=== PATIENT | female | born 1940 | race Caucasian/White ===

== ENCOUNTER 2018-12-26 12:47 | Day surgery (SDC) | payer OTHER ==
[2018-12-26] MEDS ORDERED: NS 0.9% VIAL 10 ML ONE (13:03)
[2018-12-26] MEDS ORDERED: DUOVISC 1 KIT OPTH ONE (13:04)
[2018-12-26] MEDS ORDERED: MOXIFLOXACIN HCL 10 DROPS/ML **OR USE OPTH ONE (13:04)
[2018-12-26] MEDS ORDERED: BALANCED SALT IRRIG PLAIN 500 ML BTL IRR ONE (13:04)
[2018-12-26] MEDS ORDERED: EPINEPHRINE/PF 1 MG/ML AMP ONE ×2 (13:04→15:32)
[2018-12-26] MEDS ORDERED: NA CHLORIDE 0.9% 500 ML ONE (13:55)
[2018-12-26] MEDS ORDERED: LIDOCAINE 2% MPF 5 ML VIAL ONE ×2 (13:55→15:16)
[2018-12-26] MEDS ORDERED: BUPIVACAINE 0.25% PF 10 ML VIAL ONE (13:56)
[2018-12-26] MEDS ORDERED: TETRACAINE HCL 0.5% 4ML OPTH ONE (13:56)
[2018-12-26] MEDS: PHENYLEPHRINE 10% OPTH 5ML ONE ×3 (14:29→14:40)
[2018-12-26] MEDS: CYCLOPENTOLATE 1% OPTH 2 ML ONE ×3 (14:29→14:40)
[2018-12-26] MEDS ORDERED: PROPOFOL 200 MG/20 ML VIAL IV ONE (15:16)
--- NOTE | 2018-12-26 16:00 | P.BOP ---
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
--- NOTE | 2018-12-27 02:22 | OP ---
Surgeon: Argelia Guerrero MD Anesthesiologist: Flora Sargent CRNA and Mike Mack MD. 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 Operation Performed: Phacoemulsification with intraocular lens implant, left eye. Anesthesia: Per cataract surgery. Complications: None. Description Of Procedure: In day surgery, the patient was prepped with Betadine and draped. A conju nctival incision was made in the inferior nasal quadrant with Chris scissors. A sub-Tenon block c onsisting of a 1:1 mixture of 2% Xylocaine and 0.25% bupivacaine was placed through the conjunctival incision with a blunt cannula. A Honan balloon was placed over the eye and the patient was transferr ed to the operating room. In the operating room the patient was prepped and draped in the usual sterile fashion for ophthalmic surgery. A lid speculum was placed in the left eye. Two paracentesis sites were made superiorly and inferiorly in the limbal cornea. Viscoat was placed in the anterior chamber and a crescent blade wa s used to make a corneal groove and tunnel, and a keratome was used to enter the anterior chamber. P rovisc was placed in the anterior chamber and a 360 degree capsulotomy was performed with a cystitome . The lens was hydrodissected with BSS and rotated freely. The lens was removed with a stop and cho p technique. 5.77 Phaco CDE was used to remove the lens. Residual cortex was removed with the irrig ation and aspiration. Provisc was placed in the capsular bag. A ZCB00 +25.0 Lens was placed in the capsular bag without complications. Irrigation and aspiration was used to remove residual viscoelast ic. The paracentesis sites were hydrated with BSS. The wound and paracentesis sites were inspected and found to be watertight. Vigamox 0.07 cc was placed intracamerally at the end of the procedure. The eye was irrigated with balanced salt solution. The eye was patched with a soft cotton patch and Mason metal shield. The patient was returned to day surgery in good condition. Comments: 1:5000 epinephrine was placed in the anterior chamber prior to Viscoat. Discharge Instructions: Ms. Rob is discharged to home in good condition and is to follow up with Dr. Guerrero in the morning. AIMEE/MODL Voice ID: [id number] Report ID: [id number]
== END 2018-12-26 16:45 | disposition home or self-care (01) ==
LOC: OR 12:47
PROVIDERS: ATTEND Ophthalmology Retina Specialist
PROC: 08RK3JZ Replacement of Left Lens with Synthetic Substitute, Percutaneous Approach (ICD-10-PCS; principal; 2018-12-26 12:45)
DX: H25.12 Age-related nuclear cataract, left eye (principal); H25.012 Cortical age-related cataract, left eye; K21.9 Gastro-esophageal reflux disease without esophagitis; M81.0 Age-related osteoporosis without current pathological fracture; Z85.828 Personal history of other malignant neoplasm of skin; Z88.0 Allergy status to penicillin; Z88.2 Allergy status to sulfonamides; Z91.011 Allergy to milk products; Z91.09 Other allergy status, other than to drugs and biological substances; Z80.9 Family history of malignant neoplasm, unspecified
CPT/HCPCS: 66984; J2704; J0171 ×2

== ENCOUNTER 2022-03-19 10:26 | Emergency (ER) | payer OTHER ==
--- NOTE | 2022-03-19 11:23 | RAD REPORT ---
EXAM DESCRIPTION: CT - Spine Lumbar Wo Con - 03/19/2022 11:05 am CLINICAL HISTORY: Radiculopathy. Low back pain, trauma COMPARISON: No comparisons TECHNIQUE: Axial noncontrast CT imaging of the lumbar spine was performed with coronal and sagittal re-formatted images. All CT scans are performed using dose optimization technique as appropriate and may include automated exposure control or mA/KV adjustment according to patient size. FINDINGS: Diffuse osteopenia is present. No acute fracture is evident. Moderate multilevel spondylosis is noted. There is evidence significant central canal stenosis at L3- 4 and L4-5. No paraspinal mass or hematoma seen. Aortic atherosclerosis. 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 No acute fracture is seen.
--- NOTE | 2022-03-19 11:43 | EDPHYS ---
Physician Documentation [facility] Name: Ashlyn Rob Age: 81 yrs Sex: Female : 1940 Arrival Date: 03/19/2022 Time: 10:29 Bed 8 Private MD: ED Physician Rick Newberry HPI: 03/19 11:44 This 81 yrs old Female presents to ER via EMS with complaints of Fall Injury. kdr 11:44 Patient states that she was walking from her doctor's office when she fell on a [facility] sidewalk landing with her buttock in a flower bed. There was a metal the edge of the flower bed that she also impacted. She now complains of low back pain. She denies any trouble urinating or defecating. She has not lost control of her bowel or bladder's. She has no other pain other than her low back. He is nonacute and nontoxic in the ED. Onset: The symptoms/episode began/occurred just prior to arrival. Severity of symptoms: At their worst the symptoms were mild in the emergency department the symptoms are unchanged. The patient has not experienced similar symptoms in the past. The patient has been recently seen by a physician: the patient's primary care provider. Historical: - Allergies: 10:34 PENICILLINS; ph 10:34 Sulfa (Sulfonamide Antibiotics); ph - Home Meds: 10:34 Lisinopril Oral [Active]; ph - PMHx: 10:34 Hypertensive disorder; ph - Immunization history: Last tetanus immunization: unknown. - Social history:: Smoking status: Patient denies any tobacco usage or history of. ROS: 11:44 Constitutional: Negative for fever, chills, and weight loss, Eyes: Negative for injury, kdr pain, redness, and discharge, ENT: Negative for injury, pain, and discharge, Neck: Negative for injury, pain, and swelling, Cardiovascular: Negative for chest pain, palpitations, and edema, Respiratory: Negative for shortness of breath, cough, wheezing, and pleuritic chest pain, Abdomen/GI: Negative for abdominal pain, nausea, vomiting, diarrhea, and constipation, : Negative for injury, bleeding, discharge, and swelling, MS/Extremity: Negative for injury and deformity, Skin: Negative for injury, rash, and discoloration, Neuro: Negative for headache, weakness, numbness, tingling, and seizure activity. Psych: Negative for depression, anxiety, suicide ideation, homicidal ideation, and hallucinations, Allergy/Immunology: Negative for hives, rash, and allergies, Endocrine: Negative for neck swelling, polydipsia, polyuria, polyphagia, and marked weight changes, Hematologic/Lymphatic: Negative for swollen nodes, abnormal bleeding, and unusual bruising. 11:44 Back: Positive for injury or acute deformity, decreased range of motion, pain at rest, pain with movement, of the lumbar area. Exam: 11:44 Constitutional: This is a well developed, well nourished patient who is awake, alert, kdr and in no acute distress. Head/Face: Normocephalic, atraumatic. Eyes: Pupils equal round and reactive to light, extra-ocular motions intact. Lids and lashes normal. Conjunctiva and sclera are non-icteric and not injected. Cornea within normal limits. Periorbital areas with no swelling, redness, or edema. Neck: Trachea midline, no thyromegaly or masses palpated, and no cervical lymphadenopathy. Supple, full range of motion without nuchal rigidity, or vertebral point tenderness. No Meningismus. Chest/axilla: Normal chest wall appearance and motion. Nontender with no deformity. No lesions are appreciated. Cardiovascular: Regular rate and rhythm with a normal S1 and S2. No gallops, murmurs, or rubs. Normal PMI, no JVD. No pulse deficits. Respiratory: Lungs have equal breath sounds bilaterally, clear to auscultation and percussion. No rales, rhonchi or wheezes noted. No increased work of breathing, no retractions or nasal flaring. Abdomen/GI: Soft, non-tender, with normal bowel sounds. No distension or tympany. No guarding or rebound. No evidence of tenderness throughout. Skin: Warm, dry with normal turgor. Normal color with no rashes, no lesions, and no evidence of cellulitis. MS/ Extremity: Pulses equal, no cyanosis. Neurovascular intact. Full, normal range of motion. Neuro: Awake and alert, GCS 15, oriented to person, place, time, and situation. Cranial nerves II-XII grossly intact. Motor strength 5/5 in all extremities. Sensory grossly intact. Cerebellar exam normal. Normal gait. Psych: Awake, alert, with orientation to person, place and time. Behavior, mood, and affect are within normal limits. 11:44 Back: pain, that is mild, that is moderate, of the lumbar area, ROM is painful, with all movement, normal spinal alignment noted. Vital Signs: 10:36 BP 122 / 51; Pulse 70; Resp 18; Temp 98.4; Pulse Ox 99% on R/A; Weight 81.65 kg; Height ph 5 ft. 2 in. (157.48 cm); Pain 2; 12:26 BP 135 / 54; Pulse 68; Resp 18; Temp 97.9; Pulse Ox 98% on R/A; ph 10:36 Body Mass Index 32.92 (81.65 kg, 157.48 cm) ph [place] Coma Score: 10:36 Eye Response: spontaneous(4). Verbal Response: oriented(5). Motor Response: obeys ph commands(6). Total: 15. Trauma Score (Adult): 10:36 Eye Response: spontaneous(1); Verbal Response: oriented(1); Motor Response: obeys ph commands(2); Systolic BP: > 89 mm Hg(4); Respiratory Rate: 10 to 29 per min(4); Villa Score: 15; Trauma Score: 12 MDM: 11:43 Patient medically screened. kdr 11:44 Data reviewed: vital signs, nurses notes, lab test result(s), radiologic studies. kdr Counseling: I had a detailed discussion with the patient and/or guardian regarding: the historical points, exam findings, and any diagnostic results supporting the discharge/admit diagnosis, lab results, radiology results, the need for outpatient follow up. 03/19 12:08 Order name: Urine Dipstick-Ancillary EDPA 03/19 10:47 Order name: CT Lumbar Spine Wo Con; Complete Time: 11:32 kdr 03/19 10:47 Order name: Urine Dipstick-Ancillary (obtain specimen); Complete Time: 12:25 kdr Administered Medications: 11:55 Drug: traMADol 50 mg Route: PO; ph 12:25 Follow up: Response: No adverse reaction ph Disposition Summary: 03/19/22 11:43 Discharge Ordered Location: Home kdr Problem: new kdr Symptoms: have improved kdr Condition: Stable kdr Diagnosis - Low back pain kdr - Other intervertebral disc degeneration, lumbar region kdr Followup: kdr - With: Private Physician - When: 2 - 3 days - Reason: If symptoms return, Further diagnostic work-up, Recheck today's complaints, Continuance of care, Re-evaluation by your physician Discharge Instructions: - Discharge Summary Sheet kdr - Acute Back Pain, Adult kdr - Musculoskeletal Pain kdr - Degenerative Disk Disease kdr - Back Exercises, [id number] kdr Forms: - Medication Reconciliation Form kdr - Thank You Letter kdr - Prescription Opioid Use kdr Prescriptions: - Tramadol 50 mg Oral Tablet - take 1 tablet by ORAL route every 8 hours as needed; 12 tablet; Refills: 0, kdr Product Selection Permitted - Cyclobenzaprine 5 mg Oral Tablet - take 1 tablet by ORAL route 3 times per day As needed; 12 tablet; Refills: 0, kdr Product Selection Permitted Signatures: Dispatcher [employer] Rick Robert MD MD kdr Linda Abdi RN RN ph
--- NOTE | 2022-03-19 11:43 | ER ---
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 Care prior to arrival: None. Mechanism of Injury: Fall from standing position. Trauma event details: Injury occurred in the [facility], Injury occurred: in a public building. Injury occurred: March 19, 2022. 10:29 Acuity: MARQUEZ 3 ph 10:29 Method Of Arrival: EMS: [facility] 10:37 Coronavirus screen: Vaccine status: Patient reports receiving the 2nd dose of the covid ph vaccine. Ebola Screen: No symptoms or risks identified at this time. Initial Sepsis Screen: Does the patient meet any 2 criteria? No. Patient's initial sepsis screen is negative. Does the patient have a suspected source of infection? No. Patient's initial sepsis screen is negative. Risk Assessment: Do you want to hurt yourself or someone else? Patient reports no desire to harm self or others. Onset of symptoms was March 19, 2022. Triage Assessment: 10:38 General: Appears in no apparent distress. comfortable, well groomed. Pain: Complains of ph pain in low back area. Neuro: Level of Consciousness is awake, alert, obeys commands, Oriented to person, place, time, situation. Trauma Activation: Not Applicable Physician: ED Physician; Name: ; Notified At: ; Arrived At: Physician: General Surgeon; Name: ; Notified At: ; Arrived At: Physician: Radiology; Name: ; Notified At: ; Arrived At: Physician: Respiratory; Name: ; Notified At: ; Arrived At: Physician: Lab; Name: ; Notified At: ; Arrived At: Historical: - Allergies: 10:34 PENICILLINS; ph 10:34 Sulfa (Sulfonamide Antibiotics); ph - Home Meds: 10:34 Lisinopril Oral [Active]; ph - PMHx: 10:34 Hypertensive disorder; ph - Immunization history: Last tetanus immunization: unknown. - Social history:: Smoking status: Patient denies any tobacco usage or history of. Screenin:37 Abuse screen: Denies threats or abuse. Denies injuries from another. Nutritional ph screening: No deficits noted. Tuberculosis screening: No symptoms or risk factors identified. Fall Risk Fall in past 12 months (25 points). No secondary diagnosis (0 pts). No IV (0 pts). Ambulatory Aid- Crutches/Cane/Walker (15 pts). Gait- Impaired (20 pts.). Mental Status- Oriented to own ability (0 pts). Total Montoya Fall Scale indicates High Risk Score (45 or more points). Fall prevention measures have been instituted. Side Rails Up X 2 Placed Close to Nursing Station Frequent Obs/Assessments Occuring As available patient and family educated on Fall Prevention Program and Strategies. Primary Survey: 10:35 NO uncontrolled hemorrhage observed. A: The client is awake and alert. The airway is ph patent. Breathing/Chest: Spontaneous respiratory effort, equal unlabored respirations, breath sounds clear bilaterally, regular pattern, symmetrical chest rise and fall. Circulation: No external hemorrhage present. Regular and strong central pulse, skin warm/dry/normal color. Disability Pupils are equal, round, reactive to light and accommodation. Client is alert. Exposure/Environment: No obvious injuries are noted at this time. c/o pain to lower back area A warming method has been applied: A warm blanket has been provided to the patient. 12:25 Reassessment Alertness and Airway: Awake and alert. The airway is patent. Breathing: ph Spontaneous respiratory effort, equal unlabored respirations, breath sounds clear bilaterally, regular pattern with symmetrical chest rise and fall. Circulation: No external hemorrhage noted. Regular and strong central pulse, skin warm/dry/normal color. Disability: Pupils Pupils are equal, round, reactive to light and accomodation. Alert. Secondary Survey: 10:36 HEENT: No deficits noted. Musculoskeletal: Reports pain in low back area. ph Assessment: 10:33 General: Appears in no apparent distress. comfortable, well groomed, Behavior is calm, ph cooperative, appropriate for age, ortho walking boot to R foot, reports that she is seeing drywall worker for foot fracture. Pain: Complains of pain in lumbar area and low back area. Neuro: Level of Consciousness is awake, alert, obeys commands, Oriented to person, place, time, situation, Denies dizziness. Cardiovascular: Capillary refill < 3 seconds in bilateral fingers Patient's skin is warm and dry. Respiratory: Airway is patent Respiratory effort is even, unlabored. Derm: Skin is fragile, is thin, Skin is pink, warm \T\ dry. Musculoskeletal: Circulation, motion, and sensation intact. Range of motion: intact in all extremities. Vital Signs: 10:36 BP 122 / 51; Pulse 70; Resp 18; Temp 98.4; Pulse Ox 99% on R/A; Weight 81.65 kg; Height ph 5 ft. 2 in. (157.48 cm); Pain 09/25; 12:26 BP 135 / 54; Pulse 68; Resp 18; Temp 97.9; Pulse Ox 98% on R/A; ph 10:36 Body Mass Index 32.92 (81.65 kg, 157.48 cm) ph [place] Coma Score: 10:36 Eye Response: spontaneous(4). Verbal Response: oriented(5). Motor Response: obeys ph commands(6). Total: 15. Trauma Score (Adult): 10:36 Eye Response: spontaneous(1); Verbal Response: oriented(1); Motor Response: obeys ph commands(2); Systolic BP: > 89 mm Hg(4); Respiratory Rate: 10 to 29 per min(4); [place] Score: 15; Trauma Score: 12 ED Course: 10:29 Patient arrived in ED. ph 10:33 Triage completed. ph 10:37 Arm band placed on. ph 10:38 Patient has correct armband on for positive identification. Bed in low position. Call ph light in reach. Side rails up X2. Pulse ox on. NIBP on. Door closed. Noise minimized. Warm blanket given. 10:38 Patient maintains SpO2 saturation greater than 95% on room air. Thermoregulation: warm ph blanket given to patient. 10:43 Veronika Chua RN is Primary Nurse. kr3 10:45 Rick Newberry MD is Attending Physician. kdr 11:07 CT Lumbar Spine Wo Con In Process Unspecified. EDMS 12:25 No provider procedures requiring assistance completed. Patient did not have IV access ph during this emergency room visit. Administered Medications: 11:55 Drug: traMADol 50 mg Route: PO; ph 12:25 Follow up: Response: No adverse reaction ph Medication: 10:38 VIS not applicable for this client. ph Intake: 10:36 PO: 0ml; Total: 0ml. ph Output: 10:36 Urine: 0ml; Total: 0ml. ph Outcome: 11:43 Discharge ordered by . kdr 12:25 Discharged to home ambulatory. ph 12:25 Condition: good 12:25 Discharge instructions given to patient, Instructed on discharge instructions, follow up and referral plans. medication usage, Demonstrated understanding of instructions, follow-up care, medications, Prescriptions given X 2. 12:25 Patient's length of stay was not longer than 2 hours. 12:26 Patient left the ED. ph Signatures: Dispatcher [employer] EDMS Rick Newberry MD MD kdr Hall, Patricia, RN RN ph Veronika Chua RN RN kr3
[2022-03-19] MEDS ORDERED: TRAMADOL HCL 50 MG TAB ONE (11:58)
[2022-03-19 12:08] LABS: Urine Blood Trace-intact (Negative); Urine Glucose Negative (Negative); Urine Protein Negative (Negative); Urine Specific Gravity 1.015 (1.005-1.030)
[2022-03-19 13:36] VITALS: BP 135/54; TEMP 97.9; O2SAT 98
== END 2022-03-19 12:26 | disposition home or self-care (01) ==
LOC: ER 10:26
DX: M51.36 Other intervertebral disc degeneration, lumbar region (principal); I10 Essential (primary) hypertension; Z88.0 Allergy status to penicillin; Z88.2 Allergy status to sulfonamides
CPT/HCPCS: 72131; 81003; 99284

== ENCOUNTER 2024-07-05 16:04 | Emergency (ER) | payer OTHER ==
--- OUTSIDE RECORDS SUMMARY | 2024-07-05 16:07 | XMS REPORT | Continuity of Care Document ---
Author Name Unknown Address [address] [place] [address] [address] [place] [id number] [facility] thconnect Address [address] [facility]. [address] [place] [address] Care Team Providers Care Roofer Assistant Name Role Phone ISABELLA VALDEZ Attending Clinician UnavailMONCHO Louis Attending Clinician Unageetha ilable LAB90 Attending Clinician Unavailable DURAL, CIPRIANO Attending Clinician Unavailable Payers Payer Name Policy Type Policy Number Effective Date Expirati on Date Source [employer] [place] P[place] 5 [id number] 2023 00:00:00 [employer] [place] SELECT PLAN HMO 7 [id number] 2022 00:00:00 Problems Condition Name Condition Details Condition Category Status Onset Date Resolution Date Last Treatment Date Treating Clinician Comments Source Stage 3a chronic kidney disease Stage 3a chronic kidney disease Disease Active 02-01 00:00: 00 Kateryna Seybold - Externa l Well adult exam Well adult exam Disease Active 02-01 00:00: 00 Kateryna Seybold - Externa l Primary hypertensi on Primary hypertensi on Disease Active 3-07 00:00: 00 Kateryna Seybold - Externa l GERD (gastroeso phageal reflux disease) GERD (gastroeso phageal reflux disease) Disease Active Kateryna Seybold - Externa l Allergic rhinitis Allergic rhinitis Disease Active Kateryna Seybold - Externa l No known active problems No known active problems Disease Kateryna Seybold - Externa l Allergies, Adverse Reactions, Alerts Allergy Name Allergy Type Status Severity Reaction(s) Onset Date Inactive Date Treating Clinician Comments Source Sulfa Drugs Propensi ty to adverse reaction s Active 2022-08 0-16 00:00: 00 Other reaction( s): Unknown Kateryna jacobs Egg Solids, Whole Propensi ty to adverse reaction s Active 08-24 00:00: 00 Allergy testing Kateryna jacobs Penicill ins Propensi ty to adverse reaction s Active 08-24 00:00: 00 Allergy testing Kateryna jacobs Lac Bovis Propensi ty to adverse reaction s Active Diarrhea 12-22 00:00: 00 Kateryna Lockea l Social History Social Habit Start Date Stop Date Quantity Comments Source Sexual orientation Ruchi pink Kary - External Alcoholic beverage intake 2024-03-16 00:00:00 2024-03-16 00:00:00 Lifetime non-drinker (finding) Kateryna Preston - External History of Social function 2024-02-02 00:00:00 2024-02-02 00:00:00 Kateryna Preston - External Alcohol intake 2023-10-21 00:00:00 2023-10-21 00:00:00 Lifetime non-drinker (finding) Kateryna Preston - External Sex assigned at 1940 00:00:00 1940 00:00:00 Kateryna Preston - External Smoking Status Start Date Stop Date Source Never smoked tobacco Kateryna Preston - External Medications Ordered Medication Name Filled Medication Name Start Date Stop Date Current Medication? Ordering Clinician Indication Dosage Frequency Signature (SIG) Comments Components Source Omeprazole 20 MG oral Delayed Release Capsule 03-16 15:47: 27 Yes 20mg QD Take 1 capsule (20 mg total) by mouth daily. Kateryna jacobs cycloSPORIN E (RESTASIS MULTIDOSE OP) 03-16 15:35: 09 Yes Apply to eye Kateryna jacobs Loratadine 10 MG oral Capsule 03-16 15:35: 09 Yes 10mg QD Take 1 capsule (10 mg total) by mouth daily. Kateryna jacobs Calcium 500 MG oral Tablet 03-16 15:35: 09 Yes 1{tbl} Q.[id number] 3D Take 1 tablet by mouth 3 times daily. Kateryna jacobs raNITIdine HCl (RANITIDINE 150 MAX STRENGTH OR) 03-16 15:35: 01 03-16 00:00 :00 No 150mg Q.5D Take 150 mg by mouth 2 times daily. Kateryna jacobs raNITIdine HCl (RANITIDINE 150 MAX STRENGTH OR) 02-01 08:47: 08 Yes 150mg Take 150 mg by mouth 2 times daily. Kateryna jacobs Loratadine 10 MG oral Capsule 02-01 08:47: 08 Yes 10mg Take 1 capsule (10 mg total) by mouth daily. Kateryna jacobs Calcium 500 MG oral Tablet 02-01 08:47: 08 Yes 1{tbl} Take 1 tablet by mouth 3 times daily. Kateryna jacobs cycloSPORIN E (RESTASIS MULTIDOSE OP) 11-29 09:02: 59 Yes Apply to eye Kateryna jacobs Loratadine 10 MG oral Capsule 11-29 09:02: 59 Yes 10mg Take 1 capsule (10 mg total) by mouth daily. Kateryna jacobs Calcium 500 MG oral Tablet 11-29 09:02: 59 Yes 1{tbl} Take 1 tablet by mouth 3 times daily. Kateryna jacobs Fluticasone Furoate 50 MCG/ACT inhalation AEROSOL POWDER, BREATH ACTIVATED 11-29 09:02: 59 12-20 00:00 :00 No Inhale into the lungs Kateryna jacobs Fluticasone Furoate 50 MCG/ACT inhalation AEROSOL POWDER, BREATH ACTIVATED 10-20 10:53: 38 Yes Inhale into the lungs Kateryna jacobs Calcium 600-10 MG-MCG oral Chewable Tablet 10-20 10:52: 53 10-20 00:00 :00 No Take by mouth Kateryna jacobs Probiotic Product (Probiotic- 10) oral Chewable Tablet 10-20 10:51: 18 10-20 00:00 :00 No Take by mouth Kateryna jacobs Calcium 500 MG oral Tablet 10-20 10:51: 16 Yes 1{tbl} Take 1 tablet by mouth 3 times daily. Kateryna jacobs cycloSPORIN E (RESTASIS MULTIDOSE OP) 10-20 10:51: 16 Yes Apply to eye Kateryna jacobs Loratadine 10 MG oral Capsule 10-20 10:51: 16 Yes 10mg Take 1 capsule (10 mg total) by mouth daily. Kateryna jacobs Doxycycline Hyclate 100 MG oral Capsule 10-19 00:00: 00 12-20 00:00 :00 No Kateryna jacobs Alendronate Sodium 70 MG oral Tablet 2022-08 00:00: 00 Yes [id number] 70mg Take 1 tablet (70 mg total) by mouth every 7 days. Kateryna jacobs cycloSPORIN E (RESTASIS MULTIDOSE OP) 2022-08 10:48: 43 Yes Apply to eye Kateryna jacobs Loratadine 10 MG oral Capsule 2022-08 10:48: 43 Yes 10mg Take 1 capsule (10 mg total) by mouth daily. Kateryna jacobs Fluticasone Furoate 50 MCG/ACT inhalation AEROSOL POWDER, BREATH ACTIVATED 2022-08 10:48: 43 Yes Inhale into the lungs Kateryna jacobs Probiotic Product (Probiotic- 10) oral Chewable Tablet 2022-08 10:48: 43 Yes Take by mouth Kateryna jacobs Calcium 600-10 MG-MCG oral Chewable Tablet 2022-08 10:48: 43 Yes Take by mouth Kateryna jacobs Losartan Potassium (COZAAR) 50 MG oral Tablet 05-13 00:00: 00 05-31 00:00 :00 No [id number] 100mg Take 2 tablets (100 mg total) by mouth daily. Kateryna jacobs Losartan Potassium (COZAAR) 100 MG oral Tablet 05-10 00:00: 00 Yes 100mg QD Take 1 tablet (100 mg total) by mouth daily 1 1/2 tabs QD. Kateryna jacobs Clindamycin HCl 300 MG oral Capsule 05-08 00:00: 00 Yes 300mg Take 1 capsule (300 mg total) by mouth every 8 hours. Kateryna jacobs Alendronate Sodium 70 MG oral Tablet 08-24 16:15: 52 08-24 00:00 :00 No 70mg Take 70 mg by mouth every 7 days Kateryna jacobs cycloSPORIN E (RESTASIS MULTIDOSE OP) 08-24 15:42: 05 Yes Apply to eye Kateryna jacobs Loratadine 10 MG oral Capsule 08-24 15:42: 05 Yes 10mg Take 10 mg by mouth daily Kateryna jacobs Fluticasone Furoate 50 MCG/ACT inhalation AEROSOL POWDER, BREATH ACTIVATED 08-24 15:42: 05 Yes Inhale into the lungs Kateryna jacobs Probiotic Product (Probiotic- 10) oral Chewable Tablet 08-24 15:42: 05 Yes Take by mouth Kateryna jacobs Calcium 600-10 MG-MCG oral Chewable Tablet 08-24 15:42: 05 Yes Take by mouth Kateryna jacobs Alendronate Sodium 70 MG oral Tablet 08-24 00:00: 00 Yes [id number] 70mg Take 1 tablet (70 mg total) by mouth every 7 days Kateryna jacobs Losartan Potassium 50 MG oral Tablet 2021-08 00:00: 00 Yes 50mg Take 50 mg by mouth daily Kateryna jacobs Sodium Bicarbonate 325 MG oral Tablet 2021-08 00:00: 00 10-20 00:00 :00 No TAKE 1 TABLET BY MOUTH TWICE DAILY TO HELP NORMALIZE YOUR BLOOD ACID LEVEL Kateryna jacobs Pantoprazol e Sodium 40 MG oral Tablet Delayed Response 2021-08 00:00: 00 02-01 00:00 :00 No 40mg Take 1 tablet (40 mg total) by mouth daily. Kateryna Seybold - Externa l Erythromyci n 5 MG/GM ophthalmic Ointment 2021-08 018 00:00: 00 10-20 00:00 :00 No APPLY THIN LAYER TO THE EYELIDS AT BEDTIME FOR 1 WEEK Kateryna Preston - Externa l Immunizations Ordered Immunization Name Filled Immunization Name Date Status Comments Source Influenza, Seasonal, Injectable, Preservative Free Unknown Completed Kateryna Sey bold - External Pneumococcal Vaccine, Polysaccharide Unknown Completed Kateryna Francoisybol d - External Tdap- (Boostrix, Adacel) Unknown Completed Kateryna Seybold - External Influenza Virus Vaccine, High Dose, Age 65 And Up Unknown Completed Kateryna Seybold - External Influenza Virus Vaccine, Quadrivalent, High Dose, Age 65 And Up Unknown Completed Kateryna Seybold - External Influenza, Seasonal, Injectable, Preservative Free Unknown Completed Kateryna Francoisy bold - External Pneumococcal Vaccine, Polysaccharide Unknown Completed Kateryna Seybol d - External Tdap- (Boostrix, Adacel) Unknown Completed Kateryna Francoisybold - External Influenza Virus Vaccine, High Dose, Age 65 And Up Unknown Completed Kateryna Seybold - External Influenza Virus Vaccine, Quadrivalent, High Dose, Age 65 And Up Unknown Completed Kateryna Seybold - External Influenza, Seasonal, Injectable, Preservative Free Unknown Completed Kateryna Francoisy bold - External Pneumococcal Vaccine, Polysaccharide Unknown Completed Kateryna Seybol d - External Tdap- (Boostrix, Adacel) Unknown Completed Kateryna Seybold - External Influenza Virus Vaccine, High Dose, Age 65 And Up Unknown Completed Kateryna Seybold - External Influenza Virus Vaccine, Quadrivalent, High Dose, Age 65 And Up Unknown Completed Kateryna Seybold - External Influenza, Seasonal, Injectable, Preservative Free Unknown Completed Kateryna Francoisy bold - External Pneumococcal Vaccine, Polysaccharide Unknown Completed Kateryna Seybol d - External Tdap- (Boostrix, Adacel) Unknown Completed Kateryna Seybold - External Influenza Virus Vaccine, High Dose, Age 65 And Up Unknown Completed Kateryna Seybold - External Influenza Virus Vaccine, Quadrivalent, High Dose, Age 65 And Up Unknown Completed Kateryna Seybold - External Influenza, Seasonal, Injectable, Preservative Free Unknown Completed Kateryna Sey bold - External Pneumococcal Vaccine, Polysaccharide Unknown Completed Kateryna Seybol d - External Tdap- (Boostrix, Adacel) Unknown Completed Kateryna Solisold - External Influenza Virus Vaccine, High Dose, Age 65 And Up Unknown Completed Kateryna Solisold - External Influenza Virus Vaccine, Quadrivalent, High Dose, Age 65 And Up Unknown Completed Kateryna Preston - External Pneumococcal Vaccine, Conjugate 13 Unknown Completed Kateryna Preston - External Shingles IM (Shingrix) Unknown Completed Kateryna Preston - External Influenza, Seasonal, Injectable, Preservative Free Unknown Completed Kateryna Abebe bold - External Pneumococcal Vaccine, Polysaccharide Unknown Completed Kateryna Solisol d - External Tdap- (Boostrix, Adacel) Unknown Completed Kateryna Preston - External Influenza Virus Vaccine, High Dose, Age 65 And Up Unknown Completed Kateryna Preston - External Influenza Virus Vaccine, Quadrivalent, High Dose, Age 65 And Up Unknown Completed Kateryna Preston - External Vital Signs Vital Name Observation Time Observation Value Comments S ource Systolic blood pressure 2024-03-16 20:34:00 124 mm[Hg] Kateryna Francoisybo ld - External Diastolic blood pressure 2024-03-16 20:34:00 68 mm[Hg] Kateryna Francoisybo ld - External Heart rate 2024-03-16 20:34:00 60 /min Amarjitse kirill Preston - External Body temperature 2024-03-16 20:34:00 36.94 Melani Kateryna Francoisybkayy - External Respiratory rate 2024-03-16 20:34:00 20 /min Kateryna Preston - External Body height 2024-03-16 20:34:00 157.5 cm Nori jacobs Seybold - External Body weight 2024-03-16 20:34:00 93.441 kg Nori jacobs Seybold - External BMI 2024-03-16 20:34:00 37.68 kg/m2 Nori jacobs Seybold - External Oxygen saturation in Arterial blood by Pulse oximetry 2024-03-16 20:34:00 98 /min Kateryna Soliso ld - External Systolic blood pressure 2024-02-02 13:44:00 126 mm[Hg] Kateryna Soliso ld - External Diastolic blood pressure 2024-02-02 13:44:00 68 mm[Hg] Kateryna Soliso ld - External Heart rate 2024-02-02 13:44:00 62 /min Kelse y Seybold - External Body temperature 2024-02-02 13:44:00 36.5 Melani Kateryna Seybold - External Respiratory rate 2024-02-02 13:44:00 18 /min Kateryna Seybold - External Body height 2024-02-02 13:44:00 157.5 cm Nori ey Seybold - External Body weight 2024-02-02 13:44:00 92.08 kg Nori ey Seybold - External BMI 2024-02-02 13:44:00 37.13 kg/m2 Nori ey Seybold - External Oxygen saturation in Arterial blood by Pulse oximetry 2024-02-02 13:44:00 98 /min Kateryna Seybo ld - External Body height 2023-12-20 14:55:00 157.5 cm Nori ey Seybold - External Body weight 2023-12-20 14:55:00 92.08 kg Nori ey Seybold - External BMI 2023-12-20 14:55:00 37.13 kg/m2 Nori ey Seybold - External Systolic blood pressure 2023-11-30 13:57:00 130 mm[Hg] Kateryna Seybo ld - External Diastolic blood pressure 2023-11-30 13:57:00 70 mm[Hg] Kateryna Seybo ld - External Heart rate 2023-11-30 13:57:00 64 /min Kelse y Seybold - External Body temperature 2023-11-30 13:57:00 36.67 Melani Kateryna Seybold - External Respiratory rate 2023-11-30 13:57:00 18 /min Kateryna Seybold - External Body height 2023-11-30 13:57:00 157.5 cm Nori ey Seybold - External Body weight 2023-11-30 13:57:00 93.044 kg Nori ey Seybold - External BMI 2023-11-30 13:57:00 37.52 kg/m2 Nori ey Seybold - External Oxygen saturation in Arterial blood by Pulse oximetry 2023-11-30 13:57:00 99 /min Kateryna Seybo ld - External Systolic blood pressure 2023-10-21 16:44:00 134 mm[Hg] Kateryna Seybo ld - External Diastolic blood pressure 2023-10-21 16:44:00 78 mm[Hg] Kateryna Seybo ld - External Heart rate 2023-10-21 16:44:00 68 /min Kelse y Seybold - External Body temperature 2023-10-21 16:44:00 36.83 Melani Kateryna Seybold - External Respiratory rate 2023-10-21 16:44:00 16 /min Kateryna Seybold - External Body height 2023-10-21 16:44:00 157.5 cm Nori ey Seybold - External Body weight 2023-10-21 16:44:00 91.4 kg Nori ey Seybold - External BMI 2023-10-21 16:44:00 36.85 kg/m2 Nori ey Seybold - External Oxygen saturation in Arterial blood by Pulse oximetry 2023-10-21 16:44:00 99 /min Kateryna Seybo ld - External Systolic blood pressure 2023-05-31 15:40:00 136 mm[Hg] Kateryna Seybo ld - External Diastolic blood pressure 2023-05-31 15:40:00 58 mm[Hg] Kateryna Seybo ld - External Heart rate 2023-05-31 15:40:00 63 /min Kelse y Seybold - External Body temperature 2023-05-31 15:40:00 35.72 Melani Kateryna Seybold - External Respiratory rate 2023-05-31 15:40:00 15 /min Kateryna Seybold - External Body height 2023-05-31 15:40:00 157.5 cm Nori ey Seybold - External Body weight 2023-05-31 15:40:00 88.451 kg Nori ey Seybold - External BMI 2023-05-31 15:40:00 35.67 kg/m2 Nori ey Seybold - External Systolic blood pressure 2022-08-24 21:34:00 128 mm[Hg] Kateryna Seybo ld - External Diastolic blood pressure 2022-08-24 21:34:00 54 mm[Hg] Kateryna Seybo ld - External Heart rate 2022-08-24 21:34:00 75 /min Kelse y Seybold - External Body temperature 2022-08-24 21:34:00 35.28 Melani Kateryna Seybold - External Respiratory rate 2022-08-24 21:34:00 15 /min Kateryna Preston - External Body height 2022-08-24 21:34:00 157.5 cm Nori Preston - External Body weight 2022-08-24 21:34:00 81.647 kg Nori Preston - External BMI 2022-08-24 21:34:00 32.92 kg/m2 Nori Preston - External Encounters Start Date/Time End Date/Time Encounter Type Admission Type Attending [facility] Care Department Encounter ID Source 2024-09-18 09:00:00 2024-09-18 09:00:00 Outpatient ISABELLA VALDEZ KATERYNA MEDINA [id number] Kateryna Francoiskayy 2024-06-01 00:00:00 2024-06-01 00:00:00 Outpatient KATALINA VALDEZA KATERYNA MEDINA [id number] Kateryna Francoiskayy 2024-05-18 00:00:00 2024-05-18 00:00:00 [facility] [id number] [facility]24-04-10 10:55:00 2024-04-10 10:55:00 Outpatient LAB90 KATERYNA MEDINA [id number] Kateryna Francoiskayy 2024-03-29 00:00:00 2024-03-29 00:00:00 Outpatient ISABELLA VALDEZ KATERYNA MEDINA [id number] Kateryna Francoiskayy 2024-03-23 09:10:00 2024-03-23 09:10:00 Outpatient LAB90 KATERYNA MEDINA [id number] Kateryna [facility] 2024-03-23 00:00:00 2024-03-23 00:00:00 Outpatient ISABELLA VALDEZ KATERYNA MEDINA [id number] [facility] 2024-03-22 00:00:00 2024-03-22 00:00:00 Outpatient ISABELLA VALDEZ KATERYNA MEDINA [id number] [facility] 2024-03-16 16:15:00 2024-03-16 16:15:00 Outpatient LAB90 KATERYNA MEDINA [id number] [facility] 2024-03-16 15:30:2024-03-16 15:30:00 Outpatient ISABELLA VALDEZ KATERYNA [id number] [facility] 2024-02-28 00:00:00 2024-02-28 00:00:00 Outpatient ISABELLA VALDEZ KATERYNA [id number] [facility] 2024-02-11 00:00:00 2024-02-11 00:00:00 Outpatient ISABELLA VALDEZ KATERYNA [id number] [facility] 2024-02-09 10:00:00 2024-02-09 10:00:00 Outpatient KATERYNA KATERYNA [id number] [facility] 2024-02-09 00:00:00 2024-02-09 00:00:00 Outpatient ISABELLA VALDEZ KATERYNA [id number] [facility]ateryna [facility] 2024-02-07 10:00:00 2024-02-07 10:00:00 Outpatient KATERYNA MEDINA [id number] [facility] 2024-02-02 09:50:00 2024-02-02 09:50:00 Outpatient LAB90 KATERYNA KATERYNA [id number] [facility] 2024-02-02 09:00:00 2024-02-02 09:00:00 Outpatient ISABELLA VALDEZ KATERYNA MEDINA [id number] [facility] 2023-12-30 09:15:00 2023-12-30 09:15:00 Outpatient LAB90 KATERYNA MEDINA [id number] [facility] 2023-12-22 15:20:00 2023-12-22 15:20:00 Outpatient KATERYNA MEDINA [id number] [facility] 2023-12-20 10:00:00 2023-12-20 10:00:00 Outpatient MIHAICIPRIANO KATERYNA MEDINA [id number] [facility] 2023-11-30 09:30:00 2023-11-30 09:30:00 Outpatient ISABELLA VALDEZ KATERYNA MEDINA [id number] [facility] 2023-10-28 00:00:00 2023-10-28 00:00:00 Outpatient ISABELLA VALDEZ KATERYNA MEDINA [id number] [facility] 2023-10-21 11:00:00 2023-10-21 11:00:00 Outpatient ISABELLA VALDEZFLORIDA MEDINA [id number] Kateryna Francoiskayy 2023-06-17 00:00:00 2023-06-17 00:00:00 Outpatient MNOCHO REN KATERYNA MEDINA [id number] Kateryna Preston 2023-05-31 11:00:00 2023-05-31 11:00:00 Outpatient ISABELLA VALDEZ KATERYNA [id number] [facility] 2023-05-13 00:00:00 2023-05-13 00:00:00 Outpatient MONCHO REN KATERYNA MEDINA [id number] [facility] 2023-05-13 00:00:00 2023-05-13 00:00:00 Outpatient MONCHO REN KATERYNA MEDINA [id number] [facility] 2023-04-14 00:00:00 2023-04-14 00:00:00 Outpatient MONCHO REN KATERYNA MEDINA [id number] [facility] 2022-08-27 08:50:00 2022-08-27 08:50:00 Outpatient LABSherice KATERYNA MEDINA [id number] [facility] 2022-08-26 00:00:00 2022-08-26 00:00:00 Outpatient MONCHO REN KATERYNA MEDINA [id number] Kateryna Preston 2022-08-25 09:05:00 2022-08-25 09:05:00 Outpatient LAB90 KATERYNA MEDINA [id number] [facility] 2022-08-24 14:30:00 2022-08-24 14:30:00 Outpatient MONCHO REN [facility] [id number] [facility] Date/Time Note Provider Source 2024-03-16 15:43:51 Chief Complaint Patient presents with Follow-up Wants referral for water aerobics Nara Galindo [facility]N [facility] 2024-02-02 09:13:14 Chief Complaint Patient presents with Physical HRA-Fasting for labs Nara Galindo LVN [facility] 2023-12-20 11:16:52 Patient came down to orthopedics with dr posadas for afo splint off the shelf. Patient was made aware that she would have to go to a [facility]ter [facility]anger location to get. Advertising Account Executive location map given to patient. Patient made aware that she would have to bring the script to get her afo brace. Information relayed to son. T Lobito Urbina [facility] 2023-12-20 10:05:32 Chief Complaint Patient presents with Back Pain 83 year old female here today for chronic midline lower bilateral back pain , radiating down into the right posterior quad . Patient stated overall pain presented approx 2-3 years ago after 2 major falls . Tereza Mosher MA II [facility] 2023-11-30 09:03:07 Chief Complaint Patient presents with Follow-up 6 month follow up for back pain Nara Galindo LVN [facility] 2023-10-21 10:53:45 Chief Complaint Patient presents with Back Pain Back and leg pain. Nara Galindo LVN [facility]
--- NOTE | 2024-07-05 16:47 | RAD REPORT ---
Exam:Hand Left 3 View CLINICAL HISTORY: Left hand pain FINDINGS: No fracture or dislocation seen The bones are osteoporotic. If the patient continues to have symptoms to suggest fracture MRI would be recommended
--- NOTE | 2024-07-05 16:50 | RAD REPORT ---
Exam:Hand Right 3 View HISTORY: Right hand pain FINDINGS: The bones are osteoporotic. The lunate is sclerotic with cortical irregularity. This may indicate avascular necrosis or fracture and should be correlated clinically. MRI may be helpful for further evaluation. No fracture seen involving the hand.
[2024-07-05 17:12] LABS: Absolute Basophils 0.1 K/uL (0-0.5); Absolute Eosinophils 0.3 K/uL (0-0.5); Absolute Lymphocytes (CBC) 1.5 K/uL (0.7-4.9); Absolute Monocytes 0.6 K/uL (0.1-1.3); Absolute Neutrophil 6.2 K/uL (1.8-8.0); Basophils % 0.7 % (0-1.3); Eosinophils % 3.3 % (0-4.4); Hematocrit 37.8 % (36.0-45.0); Hemoglobin 12.5 g/dL (12.0-15.0); Lymphocytes % 17.7 % (15.3-44.8); MCH 29.9 pg (27.0-35.0); MCV 90.6 fL (80-100); MPV 8.2 fL (7.6-11.3); Monocytes % 6.5 % (3.3-12.3); Neutrophils % 71.8 % (41.7-73.7); Nucleated Red Blood Cells % 0.1 % (0-0); Platelets 247 thou/uL (152-406); RBC Red Blood Cell Count 4.17 M/uL (3.86-4.86); Red Cell Distribution Width 14.6 % (12.1-15.2)
[2024-07-05 17:20] LABS: Albumin 3.5 g/dL (3.4-5.0); Anion Gap 10.7 mEq/L (5.0-15.0); Bilirubin Total 0.3 mg/dL (0.2-1.0); Globulin 3.6 g/dL (2.3-3.5); Potassium 4.7 mEq/L (3.5-5.1); Protein, Total 7.1 g/dL (6.4-8.2)
--- NOTE | 2024-07-05 17:41 | RAD REPORT ---
EXAMINATION: CT MAXILLOFACIAL WITHOUT CONTRAST CLINICAL INDICATION: Facial pain status post fall TECHNIQUE: Axial images were obtained through the facial bones and orbits without intravenous contras t. Sagittal and coronal reconstructions were created from the data. One or more of the following dose reduction techniques were used: Automated exposure control, adjustment of the mA and/or kV accor ding to patient size, and/or iterative reconstruction. Unless otherwise specified, incidental findings do not require dedicated imaging follow-up. COMPARISON: No prior exam. FINDINGS: No fracture visualized. No TMJ dislocation Fluid within the sinuses/mastoids not present. Globes size and density. IMPRESSION: No fracture visualized
--- NOTE | 2024-07-05 17:41 | RAD REPORT ---
EXAMINATION: CT HEAD WITHOUT CONTRAST CT CERVICAL SPINE WITHOUT CONTRAST CLINICAL INDICATION: Head and neck injury status post fall. Head and neck pain TECHNIQUE: Axial CT images from the skull base to the vertex without intravenous contrast. Axial CT i mages through the cervical spine were obtained without intravenous contrast. Sagittal and coronal reformatted images were created from the data set. Coronal and sagittal reformatted images were creat ed from the data set. One or more of the following dose reduction techniques were used: Automated exposure control, adjustment of the mA and/or kV according to patient size, and/or iterative reconstr uction. Unless otherwise specified, incidental findings do not require dedicated imaging follow-up. [id number]. Comparison: none FINDINGS: An intracranial bleed is not seen. Ventricles are normal in caliber. No significant hypodensity within the brain No extra-axial fluid collection. No fluid within the sinuses/mastoids No fracture or dislocation is seen involving the cervical spine. 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 If the patient continues to have symptoms to suggest acute REGIONAL CLINICAL DIRECTOR/spinal pathology then MRI would be rec ommended
--- NOTE | 2024-07-05 17:51 | RAD REPORT ---
EXAM: CT CHEST, ABDOMEN AND PELVIS WITHOUT CONTRAST CLINICAL INDICATION: Chest and abdominal pain status post fall TECHNIQUE: CT chest, abdomen and pelvis was performed, without IV contrast, as per department protoco l. Axial, sagittal and coronal reconstructions were obtained. One or more of the following dose reduction techniques were used: Automated exposure control, adjustment of the mA and/or kV according to the patient size, and/or iterative reconstruction. Unless otherwise specified, incidental findings do not require dedicated imaging follow-up. The lack of IV and oral contrast limits evaluation of the mediastinum, poppy, vessels, organs and darren l. COMPARISON: November 2023 x-ray lumbar spine FINDINGS: No pulmonary contusion. A mediastinal hematoma not seen coronary arterial calcifications. No pleural effusion. No pericardial effusion. Liver, spleen, pancreas, adrenals kidneys and bladder do not demonstrate a traumatic injury. There is no evidence of diverticulitis Spondylosis lumbar spine results in spinal stenosis. Mild to moderate compression deformity L3 vertebral body unchanged from prior exam. 6 lumbar vertebra are present. IMPRESSION: No acute traumatic injury involving the chest, abdomen nor pelvis seen
[2024-07-05] MEDS ORDERED: MUPIROCIN 2% OINT 22GM TUBE TOP ONE (17:57)
[2024-07-05] MEDS ORDERED: CEPHALEXIN 250 MG CAP ONE (17:57)
[2024-07-05] MEDS ORDERED: CEFAZOLIN SODIUM 1 GM/VIAL ONE (17:58)
[2024-07-05] MEDS ORDERED: WATER FOR INJ,STERILE 10 ML ONE (17:58)
--- NOTE | 2024-07-05 17:59 | ER ---
Nurse's Notes [facility] Name: Ashlyn Rob Age: 83 yrs Sex: Female : 1940 Arrival Date: 07/05/2024 Time: 16:04 Bed 27 Private MD: Diagnosis: Fall on same level, unspecified;Unspecified injury of head, initial encounter;Facial Laceration/ Laceration without foreign body of cheek and temporomandibular area;Fracture of nasal bones;Contusion of left hand;Contusion of right hand;Pain in left shoulder;Pain in right shoulder;Sprain of unspecified part of right wrist and hand;Unspecified kidney failure Presentation: 07/05 16:26 Chief complaint: EMS states: toned out for fall. trip and fall onto packed soil. me1 abrasion to nose, hematoma to forehead. pain to bilateral shoulders and bilateral hands from trying to catch herself. Coronavirus screen: Vaccine status: Patient reports receiving the 2nd dose of the covid vaccine. Ebola Screen: No symptoms or risks identified at this time. Initial Sepsis Screen: Does the patient meet any 2 criteria? No. Patient's initial sepsis screen is negative. Does the patient have a suspected source of infection? No. Patient's initial sepsis screen is negative. Risk Assessment: Do you want to hurt yourself or someone else? Patient reports no desire to harm self or others. Onset of symptoms was July 05, 2024. Care prior to arrival: Cervical collar in place. 16:26 Method Of Arrival: EMS: [place] [id number] 16:26 Acuity: MARQUEZ 3 me1 Triage Assessment: 16:29 General: Appears uncomfortable, well groomed, well developed, well nourished, Behavior me1 is calm, cooperative, appropriate for age. Pain: Complains of pain in right hand and left hand and face and chin and left eye and nose and right eye Pain does not radiate. Pain currently is 10 out of 10 on a pain scale. Quality of pain is described as throbbing, Pain began suddenly, Is continuous. EENT: No signs and/or symptoms were reported regarding the EENT system. Neuro: Level of Consciousness is awake, alert, obeys commands, Oriented to person, place, time, situation, Appropriate for age. Cardiovascular: Patient's skin is warm and dry. Respiratory: Airway is patent Respiratory effort is even, unlabored, Respiratory pattern is regular, symmetrical. GI: No signs and/or symptoms were reported involving the gastrointestinal system. : No signs and/or symptoms were reported regarding the genitourinary system. Derm: Wound noted face and chin and left eye and nose and right eye. Musculoskeletal: Reports pain in right hand and left hand and face and chin and left eye and nose and right eye. Injury Description: trip and fall. Historical: - Allergies: 16:29 PENICILLINS; me1 16:29 Sulfa (Sulfonamide Antibiotics); me1 - PMHx: 16:29 Hypertensive disorder; me1 - PSHx: 16:29 Tonsillectomy; Cholecystectomy; me1 - Immunization history:: Adult Immunizations up to date. - Infectious Disease History:: Denies. - Family history:: not pertinent. - Social history:: Smoking status: Patient/guardian denies using tobacco, but has a distant history of tobacco abuse. Screenin:26 [facility] ED Fall Risk Assessment (Adult) History of falling in the last 3 months, me1 including since admission Yes- single mechanical fall (1 pt) Confusion or Disorientation No (0 pts) Intoxicated or Sedated No (0 pts) Impaired Gait No (0 pts) Mobility Assist Device Used No (0 pt) Altered Elimination No (0 pt) Score/Fall Risk Level 0 - 2 = Low Risk Maintained a safe environment, Provided non-skid footwear, Hourly rounding (assess needs \T\ fall precautionary measures) done. Abuse screen: Denies threats or abuse. Nutritional screening: No deficits noted. Tuberculosis screening: No symptoms or risk factors identified. Assessment: 17:08 Reassessment: No changes from previously documented assessment. Patient and/or family ll1 updated on plan of care and expected duration. Pain level reassessed. Patient is alert, oriented x 3, equal unlabored respirations, skin warm/dry/pink. Vital Signs: 16:26 BP 188 / 61; Pulse 71; Resp 18; Temp 97.5; Pulse Ox 98% ; Weight 90.72 kg; Height 5 ft. me1 2 in. ; Pain 10/10; 17:00 BP 150 / 85; Pulse 62; Resp 16; Pulse Ox 99% ; me1 18:00 BP 149 / 86; Pulse 64; Resp 17; Temp 98.4; Pulse Ox 99% ; me1 16:26 Body Mass Index 36.58 (90.72 kg, 157.48 cm) me1 16:26 Pain Scale: Adult me1 [place] Score: 16:14 Eye Response: spontaneous(4). Motor Response: obeys commands(6). Verbal Response: edgar oriented(5). Total: 15. 16:19 Eye Response: spontaneous(4). Motor Response: obeys commands(6). Verbal Response: edgar oriented(5). Total: 15. ED Course: 16:06 Patient arrived in ED. bd 16:07 Abner Sandhu MD is Attending Physician. edgar 16:14 Kiersten Becker, VALENTINE is Primary Nurse. me1 16:26 Patient has correct armband on for positive identification. Bed in low position. Call me1 light in reach. Side rails up X2. Provided Education on: POC. Verbalized understanding. . Client placed on continuous cardiac and pulse oximetry monitoring. NIBP monitoring applied. Pulse ox on. NIBP on. Warm blanket given. 16:26 No provider procedures requiring assistance completed. Patient did not have IV access me1 during this emergency room visit. 16:29 Triage completed. me1 16:29 Arm band placed on Patient placed in an exam room. me1 16:41 Hand Right 3 View XRAY In Process Unspecified. EDMS 16:41 Hand Left 3 View XRAY In Process Unspecified. EDMS 16:56 Initial lab(s) drawn, by id, sent to lab. Missed attempt(s): 22 gauge in left me1 antecubital area. 17:08 Missed attempt(s): 22 gauge in right wrist. forearm. Bleeding controlled, band aid ll1 applied, catheter tip intact. 17:26 CT Head C Spine In Process Unspecified. EDMS 17:26 CT Chest Abdomen Pelvis W/O Contrast In Process Unspecified. EDMS 17:26 CT Facial Bones W/O Con In Process Unspecified. EDMS 17:58 Pia Luu MD is Referral Physician. edgar 17:58 Sanjay Villareal MD is Referral Physician. edgar 18:25 Wound care: to abrasion, located on face and chin and nose was cleaned with with me1 mupirocin applied to abrasions. . Administered Medications: 17:58 CANCELLED (Duplicate Order): ns 0.9% 500 ml 500 ml IV at 1 bolus once; to be given as a edgar bolus over 30 minutes 17:58 CANCELLED (Duplicate Order): cefazolin1 grams IVPB once [facility] 18:05 Drug: Cephalexin PO 500 mg PO once Route: PO; me1 18:06 Follow up: Response: No adverse reaction me1 18:05 Drug: HYDROcodone-acetaminophen PO 5 mg-325 mg 1 tabs PO once Route: PO; me1 18:41 Follow up: Response: No adverse reaction; Pain is decreased me1 18:10 Drug: CeFAZolin IM 1 grams IM once Route: IM; Site: left deltoid; me1 18:41 Follow up: Response: No adverse reaction me1 18:25 Drug: Mupirocin Topical Ointment 2 % 1 application Topical once Route: Topical; Site: me1 face; Medication: 18:43 VIS not applicable for this client. me1 Outcome: 17:58 Discharge ordered by . [facility] 18:43 Discharged to home via wheelchair, with friend, me1 18:43 Condition: stable 18:43 Discharge instructions given to patient, friend, Instructed on discharge instructions, follow up and referral plans. medication usage, wound care, Demonstrated understanding of instructions, follow-up care, medications, wound care, Prescriptions given X 3, 18:43 Patient left the ED. me1 Signatures: Dispatcher [employer] Frannie Almaraz Corey, MD MD cha Lewis, Lynsay, RN RN 1 Kiersten Becker RN RN me1
--- NOTE | 2024-07-05 17:59 | EDPHYS ---
Physician Documentation [facility] Name: Ashlyn Rob Age: 83 yrs Sex: Female : 1940 Arrival Date: 07/05/2024 Time: 16:04 Bed 27 Private MD: ED Physician Abner Sanhdu HPI: 07/05 16:14 This 83 yrs old Female presents to ER via Unassigned with unknown complaint. edgar 16:14 The patient or guardian reports abrasion, deformity, injury, pain, a puncture wound. edgar The complaints affect the right eye, nose, left eye and chin. Context of injury: The problem was sustained at home, resulted from a fall. Onset: The symptoms/episode began/occurred just prior to arrival. Associated signs and symptoms: Loss of consciousness: This patient did not experience any loss of consciousness. Pertinent positives: headache, injury. The patient or guardian complains of pain, that is acute. Modifying factors: the symptoms are alleviated by remaining still, The symptoms are aggravated by movement. Historical: - Allergies: 16:29 PENICILLINS; me1 16:29 Sulfa (Sulfonamide Antibiotics); me1 - PMHx: 16:29 Hypertensive disorder; me1 - PSHx: 16:29 Tonsillectomy; Cholecystectomy; me1 - Immunization history:: Adult Immunizations up to date. - Infectious Disease History:: Denies. - Family history:: not pertinent. - Social history:: Smoking status: Patient/guardian denies using tobacco, but has a distant history of tobacco abuse. ROS: 16:14 Constitutional: Negative for fever, chills, and weight loss, Eyes: Negative for injury, edgar pain, redness, and discharge, Neck: Negative for injury, pain, and swelling, Cardiovascular: Negative for chest pain, palpitations, and edema, Respiratory: Negative for shortness of breath, cough, wheezing, and pleuritic chest pain, Abdomen/GI: Negative for abdominal pain, nausea, vomiting, diarrhea, and constipation, Back: Negative for injury and pain, : Negative for injury, bleeding, discharge, and swelling, Neuro: Negative for headache, weakness, numbness, tingling, and seizure, Psych: Negative for depression, anxiety, suicide ideation, homicidal ideation, and hallucinations, Allergy/Immunology: Negative for hives, rash, and allergies, Endocrine: Negative for neck swelling, polydipsia, polyuria, polyphagia, and marked weight changes, 16:14 ENT: Positive for nose bleed, rhinorrhea, sinus pain, Exam: 16:14 Constitutional: This is a well developed, well nourished patient who is awake, alert, edgar and in no acute distress. Eyes: Pupils equal round and reactive to light, extra-ocular motions intact. Lids and lashes normal. Conjunctiva and sclera are non-icteric and not injected. Cornea within normal limits. Periorbital areas with no swelling, redness, or edema. ENT: Nares patent. No nasal discharge, no septal abnormalities noted. Tympanic membranes are normal and external auditory canals are clear. Oropharynx with no redness, swelling, or masses, exudates, or evidence of obstruction, uvula midline. Mucous membranes moist. Neck: Trachea midline, no thyromegaly or masses palpated, and no cervical lymphadenopathy. Supple, full range of motion without nuchal rigidity, or vertebral point tenderness. No Meningismus. Chest/axilla: Normal chest wall appearance and motion. Nontender with no deformity. No lesions are appreciated. Cardiovascular: Regular rate and rhythm with a normal S1 and S2. No gallops, murmurs, or rubs. Normal PMI, no JVD. No pulse deficits. Respiratory: Lungs have equal breath sounds bilaterally, clear to auscultation and percussion. No rales, rhonchi or wheezes noted. No increased work of breathing, no retractions or nasal flaring. Abdomen/GI: Soft, non-tender, with normal bowel sounds. No distension or tympany. No guarding or rebound. No evidence of tenderness throughout. Back: No spinal tenderness. No costovertebral tenderness. Full range of motion. Female : Normal external genitalia. Neuro: Awake and alert, GCS 15, oriented to person, place, time, and situation. Cranial nerves II-XII grossly intact. Motor strength 5/5 in all extremities. Sensory grossly intact. Cerebellar exam normal. Normal gait. Psych: Awake, alert, with orientation to person, place and time. Behavior, mood, and affect are within normal limits. 16:14 Skin: injury, abrasion(s), moderate sized abrasion noted, avulsion(s), a very small contusion(s), that are superficial, that are deep, of the face, Vital Signs: 16:26 BP 188 / 61; Pulse 71; Resp 18; Temp 97.5; Pulse Ox 98% ; Weight 90.72 kg; Height 5 ft. me1 2 in. ; Pain 10/10; 17:00 BP 150 / 85; Pulse 62; Resp 16; Pulse Ox 99% ; me1 18:00 BP 149 / 86; Pulse 64; Resp 17; Temp 98.4; Pulse Ox 99% ; me1 16:26 Body Mass Index 36.58 (90.72 kg, 157.48 cm) me1 16:26 Pain Scale: Adult me1 [place] Score: 16:14 Eye Response: spontaneous(4). Motor Response: obeys commands(6). Verbal Response: edgar oriented(5). Total: 15. 16:19 Eye Response: spontaneous(4). Motor Response: obeys commands(6). Verbal Response: edgar oriented(5). Total: 15. MDM: 16:07 Medical Screening Exam initiated edgar 16:19 Differential diagnosis: Contusion of Hematoma on Laceration of face, Intracranial edgar bleed- subdural, epidural, subarachnoid, intracerebral, Concussion without LOC. cerebral contusion, Anterior dislocation with fracture, Anterior dislocation without fracture, Posterior dislocation with fracture, Posterior dislocation without fracture, tendonitis. Differential diagnosis: abrasion, closed head injury, contusion, fracture, laceration, multiple trauma, sprain, strain. Data reviewed: vital signs, nurses notes, EMS record, lab test result(s), radiologic studies, CT scan, plain films. Consideration of Admission/Observation Patient was admitted/placed on observation. Escalation of care including admission/observation considered. I considered the following discharge prescriptions or medication management in the emergency department Medications were administered in the Emergency Department. See OCT. 07/05 16:12 Order name: CBC with Diff; Complete Time: 17:33 [facility] 07/05 16:12 Order name: Comprehensive Metabolic Panel; Complete Time: 17:33 [facility] 07/05 16:12 Order name: CT Head C Spine; Complete Time: 17:55 [facility] 07/05 16:12 Order name: CT Chest Abdomen Pelvis W/O Contrast; Complete Time: 17:55 [facility] 07/05 16:12 Order name: Hand Right 3 View XRAY; Complete Time: 17:33 [facility] 07/05 16:12 Order name: Hand Left 3 View XRAY; Complete Time: 17:33 [facility] 07/05 16:12 Order name: CT Facial Bones W/O Con; Complete Time: 17:55 [facility] 07/05 16:12 Order name: Wound Care; Complete Time: 18:25 [facility] 07/05 16:12 Order name: Ice pack; Complete Time: 18:06 [facility] 07/05 18:02 Order name: PO challenge; Complete Time: 18:06 edgar Administered Medications: 17:58 CANCELLED (Duplicate Order): ns 0.9% 500 ml 500 ml IV at 1 bolus once; to be given as a edgar bolus over 30 minutes 17:58 CANCELLED (Duplicate Order): cefazolin1 grams IVPB once edgar 18:05 Drug: Cephalexin PO 500 mg PO once Route: PO; me1 18:06 Follow up: Response: No adverse reaction me1 18:05 Drug: HYDROcodone-acetaminophen PO 5 mg-325 mg 1 tabs PO once Route: PO; me1 18:41 Follow up: Response: No adverse reaction; Pain is decreased me1 18:10 Drug: CeFAZolin IM 1 grams IM once Route: IM; Site: left deltoid; me1 18:41 Follow up: Response: No adverse reaction me1 18:25 Drug: Mupirocin Topical Ointment 2 % 1 application Topical once Route: Topical; Site: me1 face; Disposition Summary: 07/05/24 17:58 Discharge Ordered Notes: Location: Home edgar Problem: new edgar Symptoms: have improved edgar Condition: Stable edgar Diagnosis - Fall on same level, unspecified edgar - Unspecified injury of head, initial encounter edgar - Facial Laceration/ Laceration without foreign body of cheek and temporomandibular edgar area - Fracture of nasal bones edgar - Contusion of left hand edgar - Contusion of right hand edgar - Pain in left shoulder edgar - Pain in right shoulder edgar - Sprain of unspecified part of right wrist and hand edgar - Unspecified kidney failure edgar Followup: edgar - With: Private Physician - When: 2 - 3 days - Reason: Recheck today's complaints, Continuance of care, Re-evaluation by your physician Followup: edgar - With: Pia Luu MD - When: 2 - 3 days - Reason: Recheck today's complaints, Re-evaluation by your physician Followup: edgar - With: Sanjay Villareal MD - When: 2 - 3 days - Reason: Recheck today's complaints, Re-evaluation by your physician Discharge Instructions: - Discharge Summary Sheet [facility] - Joint Pain edgar - Hand Contusion edgar - Head Injury, Adult edgar - Musculoskeletal Pain edgar - Shoulder Pain [facility] - RICE Therapy for Routine Care of Injuries, [id number]-[id number] edgar - Shoulder Pain, [id number]-[id number] edgar - Hand Contusion, Rprw-fl-Dvjv edgar - Head Injury, Adult, Ykae-pp-Ebke edgar - Chronic Kidney Disease, Adult, Hhel-ei-Onok [facility] Forms: - Medication Reconciliation Form [facility] - Antibiotic Education [facility] - Prescription Opioid Use [facility] - Patient Portal Instructions [facility] - Leadership Thank You Letter [facility] Prescriptions: - Centany 2 % Topical ointment - apply 1 application TOPICAL route 3 times per day; 30 gram; Refills: 0, Product [facility] Selection Permitted - acetaminophen-codeine 300-30 mg Oral tablet - take 1 tablet ORAL route every 4-6 hours; 20 tablet; Refills: 0, Product [facility] Selection Permitted - Cephalexin 500 mg Oral Capsule - take 1 capsule ORAL route every 6 hours for 10 days; 40 capsule; Refills: 0, [facility] Product Selection Permitted Signatures: Dispatcher [employer] Abner Reyes MD MD cha Eddleman, Michelle, RN RN me1 Corrections: (The following items were deleted from the chart) 17:58 16:12 NS 0.9% IV 500 ml 500 ml IV at 1 bolus once; to be given as a bolus over 30 edgar minutes ordered. [facility] 17:58 16:12 ceFAZolin IVPB 1 grams IVPB once ordered. [facility] 18:06 17:29 Splint - Wrist ordered. [facility]
[2024-07-05] MEDS ORDERED: HYDROCODONE/APAP 5/325 MG TAB ONE (18:03)
[2024-07-05 18:49] VITALS: O2SAT 99
[2024-07-05 18:50] VITALS: BP 149/86; TEMP 98.4
== END 2024-07-05 18:43 | disposition home or self-care (01) ==
LOC: ER 16:04
DX: S02.2XXA Fracture of nasal bones, initial encounter for closed fracture (principal); S01.81XA Laceration without foreign body of other part of head, initial encounter; S63.91XA Sprain of unspecified part of right wrist and hand, initial encounter; S60.222A Contusion of left hand, initial encounter; S60.221A Contusion of right hand, initial encounter; M25.512 Pain in left shoulder; M25.511 Pain in right shoulder; N19 Unspecified kidney failure; W18.30XA Fall on same level, unspecified, initial encounter; Y92.009 Unspecified place in unspecified non-institutional (private) residence as the place of occurrence of the external cause; I10 Essential (primary) hypertension
CPT/HCPCS: 85025; 36415; 80053; 70450; 71250; 72125; 70486; 76377; 74176; 73130 ×2; 96372; 99284; J0690